=== PATIENT | female | born 1995 | race Caucasian/White ===

== ENCOUNTER → 2018-07-30 | Outpatient (CLI) | payer OTHER ==
--- NOTE | 2018-07-30 09:42 | RADIOLOGY REPORT (SQ) ---
EXAM DESCRIPTION: U/S RETROPERITON (RENAL/AORTA) COMPLETED DATE/TIME: 07/30/2018 9:12 am REASON FOR STUDY: Z87.442 PERSONAL HISTORY OF URINARY CALCULI Z87.442 PERSONAL HISTORY OF URINARY C ALCULI COMPARISON: None. TECHNIQUE: Dynamic and static grayscale images acquired of the kidneys and bladder and recorded on P ACS. Additional selected color Doppler and spectral images recorded. LIMITATIONS: None. FINDINGS: RIGHT KIDNEY: Normal size, 10 cm in length. Normal echogenicity. No solid or suspicious ma sses. No hydronephrosis. No calcifications. LEFT KIDNEY: Normal size, 10 cm in length. Normal echogenicity. No solid or suspicious masses. No hy dronephrosis. No calcifications. BLADDER: Decompressed, not well seen OTHER FINDINGS: No other significant finding. IMPRESSION: NORMAL RENAL AND BLADDER ULTRASOUND. TECHNICAL DOCUMENTATION: JOB ID: [id number] [employer]- All Rights Reserved Reading location - IP/workstation name: [email or web address]
== END ==
LOC: RAD 08:54
PROVIDERS: ATTEND Physician Assistant
DX: Z87.442 Personal history of urinary calculi (principal)
CPT/HCPCS: 76770